=== PATIENT | male | born 1975 | race Caucasian/White ===

== ENCOUNTER 2021-02-24 22:36 | Emergency (ER) | payer OTHER ==
[~2021-02-24] VITALS: Ht 188 cm; Wt 90.7 kg
[2021-02-24] MEDS ORDERED: SERTRALINE HCL100 MG PO (22:55)
[2021-02-24] MEDS ORDERED: STRATTERA40 MG PO (22:55)
[2021-02-24 23:34] LABS: ABSOLUTE NEUTROPHILS 12.9 thou/uL (1.4-8.2); BASOPHILS 0.1 % (0.0-2.0); HEMOGLOBIN 14.6 gm/dL (14.0-18.0); LYMPHOCYTES 5.9 % (24.0-44.0); MCH 31.2 pg (26.0-34.0); MCHC 34.8 g/dL (28.0-37.0); MCV 89.7 fL (80.0-100.0); MONOCYTES 4.1 % (1.0-8.0); PLATELET COUNT 462 thou/uL (150-400); POLYS 89.9 % (36.0-66.0); RBC 4.69 mil/uL (4.50-6.00); RDW 13.5 % (10.5-14.5); WBC 14.3 thou/uL (4.0-11.0)
[2021-02-24 23:38] LABS: CREATININE 1.5 mg/dL (0.7-1.3); POTASSIUM 4.7 mmol/L (3.5-5.1)
[2021-02-24 23:45] LABS: ALBUMIN 4.6 g/dL (3.4-5.0); TOTAL BILIRUBIN 0.3 mg/dL (0.2-1.0); TOTAL PROTEIN 8.4 g/dL (6.4-8.2)
[2021-02-25 02:41] VITALS: BP 151/99
== END 2021-02-25 02:42 | disposition home or self-care (01) ==
LOC: ER 22:36
PROVIDERS: Emergency Medicine
DX: F15.10 Other stimulant abuse, uncomplicated (principal)

== ENCOUNTER 2021-10-15 12:48 | Emergency (ER) | payer OTHER ==
[~2021-10-15 12:48] MED LIST: SERTRALINE HCL100 MG PO; STRATTERA40 MG PO
[2021-10-15 12:51] VITALS: BP 119/65
== END 2021-10-15 14:00 | disposition home or self-care (01) ==
LOC: ER 12:48
DX: F10.129 Alcohol abuse with intoxication, unspecified (principal); Y90.9 Presence of alcohol in blood, level not specified; Z79.899 Other long term (current) drug therapy